=== PATIENT | female | born 1950 | race Caucasian/White ===

== ENCOUNTER 2018-01-06 17:00 | Inpatient (IN) | payer OTHER, BC ==
[~2018-01-06] VITALS: Ht 157.5 cm; Wt 54.0 kg
--- NOTE | ~2018-01-06 | H ---
[facility] [place] [address] HISTORY AND PHYSICAL Name: LOUIS MARS Room #: 404-P ADM IN M.R.#: [id number] Admission: 01/06/18 Attend Phys: Bhavana Pena MD Discharge: Date of : 50 Report #: [id number] THIS REPORT FOR: //name// CC: Bhavana SANCHEZ PCP DATE OF SERVICE: 01/06/2018 HISTORY OF PRESENT ILLNESS: The patient is a 67-year-old female who is known to have a history of Parkinson's disease, diabetes mellitus, in addition to right below-knee amputation. The patient presented to the clinic yesterday with being very weak, very stiff and according to the , she stopped taking her medications for the last week. The patient's p.o. intake has been very poor. The patient was found to be very sick, tachycardic and tachypneic. For this reason, she was sent to the hospital. PAST MEDICAL HISTORY: Significant for Parkinson's disease that was diagnosed in 2008, type 1 diabetes mellitus that was diagnosed at the age of about 15 years ago. The patient wears glasses. The patient has a history of depression, right below-knee amputation, appendectomy, hysterectomy, hyperlipidemia, microalbuminuric diabetic nephropathy. MEDICATIONS: Reviewed and reconciled. ALLERGIES: DARVON and CODEINE. SOCIAL HISTORY: The patient is a former smoker. She smoked about half a pack a day for 20 years, but quit at the age of 49. She denies any alcohol use. She denies any drug use. FAMILY HISTORY: The patient's father at the age of 84. Mother at the age of 84 because of breast cancer and father at the age of 78 because of diabetes. REVIEW OF SYSTEMS: The patient is alert. She is pleasant. She is not in any distress. The patient denies any chest pain, shortness of breath or palpitation. She denies any nausea, vomiting or changes in her bowels. She denies any pain in the arms or legs. The patient is complaining of pain on the right hip. PHYSICAL EXAMINATION: VITAL SIGNS: On arrival to the hospital, the patient's temperature was 38.8, pulse 102, respirations 26, blood pressure 120/75. HEAD AND NECK: Unremarkable. Neck was supple. LUNGS: Clear to auscultation. CARDIAC: S1, S2. [address] [address] HISTORY AND PHYSICAL Name: LOUIS MARS Room #: 404-P [facility] IN .R.#: [id number] Admission: 01/06/18 Attend Phys: Bhavana Pena MD Discharge: Date of : 50 Report #: [id number] ABDOMEN: Benign. Bowel sounds were positive. EXTREMITIES: Without any edema. The patient has tenderness on the left hip area. The patient's x-ray of the chest showed low lung volumes with intermediate nodular density on the lower right lung. LABORATORY DATA: The patient's CBC showed a white count of 12.1, hemoglobin 12.7, hematocrit 39.3, platelet count 195. The patient's alcohol level was less than 10. Basic metabolic panel showed a sodium of 121, potassium 4.3, chloride 91, bicarbonate 24, BUN 9, creatinine 0.8, glucose of 380. The patient's acetaminophen level is less than 2, salicylate less than 2.8. 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 Rapid drug screen was negative. Urinalysis showed yellow colored urine, +3 glucose, +1 ketones, leukocytes +1, white blood cells are more than 25, red blood cells are 0-2, bacteria more than 30. CT angiogram showed no evidence of pulmonary embolus or aortic dissection, right lower lobe airspace infiltrate, this could represent pneumonia, significantly distended gallbladder without any gallstones. Lactic acid was 2.1, then 2.2 and after that went to 1.4. ASSESSMENT AND PLAN: 1. Pneumonia. 2. Urinary tract infection. 3. Hyponatremia. 4. Severe depression. 5. Parkinson's disease. 6. Type 1 diabetes mellitus. 7. Right below-knee amputation. The patient was admitted to the hospital with the above-mentioned diagnoses. I will go ahead and continue with the antibiotics including Rocephin and azithromycin. I will continue with the normal saline IV hydration. I will check the patient's labs tomorrow morning. The patient to start physical therapy and occupational therapy. The patient to resume her home medications and I will resume the patient's Wellbutrin that was stopped a few months ago. We will continue to monitor the patient very closely. I will start the patient on Lovenox for DVT prophylaxis. <ELECTRONICALLY SIGNED> By: Bhavana Pena MD 01/08/18 0752 [id number] Bhavana Pena MD /nt
--- NOTE | ~2018-01-06 | EKG ---
[place] [address] [facility] [place] [address] ELECTROCARDIOGRAM REPORT Name: LOUIS MARS Room #: 404-P ADM IN M.R.#: [id number] Admission: 01/06/18 Attend Phys: Bhavana Pena MD Discharge: Date of : 50 Report #: [id number] THIS REPORT FOR: //name// [facility] ED Test Date: 2018-01-06 Test Time: 18:41:04 Pat Name: LOUIS MARS Department: Room: Gender: F Occupational Medicine Specialist: TASHI : 1950 Requested By: Alexia Ryan Order Number: [id number] MD: Axel Smith Measurements Intervals [place] Rate: 102 P: 32 [place]: 139 QRS: 7 QRSD: 112 T: 45 QT: 365 QTc: 476 Interpretive Statements Sinus tachycardia Nonspecific ST segment abnormality No previous ECG available for comparison Electronically Signed On 01-07-2018 8:55:55 CDT by Axel Smith [email or web address] <ELECTRONICALLY SIGNED> By: Axel Smith MD, [facility] 01/07/18 0855 [id number] [id number] Axel Smith MD, FACC /EPI
[~2018-01-06 17:00] MED LIST: ARIPIPRAZOLE5 MG PO; BISACODYL SUPP10 MG RECTAL; COLACE100 MG PO; CYMBALTA60 MG PO; DETROL LA4 MG PO; GLUCAGON EMERGEN1 MG IJ; GLUTOSE GEL 1515 G1 PO; LEVEMIR SUBQ; LIPITOR10 MG PO; MAALOX ADVANCE355 M1 PO; MILK OF MA2400 MG/10 PO; MIRALAX17 GM PO; NOVOLOG100 UNIT/1 SUBQ; RESTORIL15 MG PO; SENOKOT-S1 TA1 PO; SINEMET 25-2501 EAC1 PO; TYLENOL325 MG PO; UNICOMPLEX M TA1 TA1 PO; VITAMIN D 5050000 I1 PO; WELLBUTRIN 75 M75 M1 PO; XANAX 0.25 MG0.25 MG PO
[2018-01-06 17:20] VITALS: BP 120/75
[2018-01-06 18:02] LABS: HEMATOCRIT 39.3 % (37.0-47.0); HEMOGLOBIN 12.7 gm/dL (12.0-15.0); MCH 26.4 pg (26.0-34.0); MCHC 32.3 g/dL (28.0-37.0); MCV 81.8 fL (80.0-100.0); RBC 4.81 mil/uL (4.20-5.00); WBC 12.1 thou/uL (4.0-11.0)
[2018-01-06 18:09] LABS: ANION GAP 6 mmol/L (7-16); BUN 9 mg/dL (7-18); CALCIUM 8.6 mg/dL (8.5-10.1); CHLORIDE 91 mmol/L (98-107); CO2 24 mmol/L (21-32); CREATININE 0.8 mg/dL (0.6-1.0); GLUCOSE 380 mg/dL (74-106); POTASSIUM 4.3 mmol/L (3.5-5.1); SODIUM 121 mmol/L (136-145)
[2018-01-06 18:13] LABS: SALICYLATE < 2.8 mg/dL (2.8-20.0)
[2018-01-06 18:54] LABS: URINE BILIRUBIN NEGATIVE (Negative); URINE BLOOD TRACE (Negative); URINE CLARITY CLEAR; URINE COLOR YELLOW; URINE GLUCOSE-RANDOM* 3+ (Negative); URINE KETONES 1+ (Negative); URINE LEUKOCYTES 1+ (Negative); URINE NITRITE NEGATIVE (Negative); URINE PROTEIN (DIPSTICK) NEGATIVE (Negative); URINE SPECIFIC GRAVITY <= 1.005 (1.005-1.035)
[2018-01-06 19:02] LABS: AMP/METHAMP Negative (Negative); BARBITURATES Negative (Negative); BENZODIAZEPINES Negative (Negative); COCAINE Negative (Negative); METHADONE Negative (Negative); OPIATES Negative (Negative); PCP Negative (Negative)
[2018-01-06 19:04] LABS: BACTERIA >30 Many /HPF (None Seen); CASTS None Seen /LPF (None Seen); CRYSTALS None Seen /LPF (None Seen); SQUAMOUS 4-10 Moderate /LPF (0-3); URINE RBC 0-2 Rare /HPF (0-2); URINE WBC >25 Many /HPF (0-5)
[2018-01-06] MEDS ORDERED: SINEMET 25-1001 EAC1 PO (19:06)
[2018-01-06] MEDS ORDERED: METFORMIN HCL500 MG PO (19:06)
[2018-01-06 22:04] VITALS: BP 125/80
[2018-01-07 07:16] VITALS: BP 106/64
[2018-01-07 09:49] VITALS: BP 114/63
[2018-01-07 20:20] VITALS: BP 102/61; BP 1102/61
[2018-01-08] VITALS: BP 112/58
[2018-01-08 04:47] LABS: HEMATOCRIT 37.2 % (37.0-47.0); HEMOGLOBIN 12.1 gm/dL (12.0-15.0); MCH 26.6 pg (26.0-34.0); MCHC 32.5 g/dL (28.0-37.0); MCV 82.1 fL (80.0-100.0); RBC 4.53 mil/uL (4.20-5.00); RDW 14.1 % (10.5-14.5); WBC 6.8 thou/uL (4.0-11.0)
[2018-01-08 04:48] VITALS: BP 128/80
[2018-01-08 04:52] LABS: CALCIUM 7.9 mg/dL (8.5-10.1); CREATININE 0.3 mg/dL (0.6-1.0); POTASSIUM 4.2 mmol/L (3.5-5.1)
[2018-01-08 10:17] VITALS: BP 106/65
[2018-01-08 17:09] VITALS: BP 109/73
[2018-01-08 20:35] VITALS: BP 121/75
[2018-01-09 04:41] VITALS: BP 116/70
[2018-01-09 08:51] VITALS: BP 116/68
[2018-01-09 16:21] VITALS: BP 118/74
[2018-01-09 20:29] VITALS: BP 115/73
[2018-01-10 04:02] LABS: HEMATOCRIT 34.7 % (37.0-47.0); HEMOGLOBIN 11.4 gm/dL (12.0-15.0); MCH 26.8 pg (26.0-34.0); MCHC 32.8 g/dL (28.0-37.0); MCV 81.7 fL (80.0-100.0); RBC 4.25 mil/uL (4.20-5.00); WBC 4.5 thou/uL (4.0-11.0)
[2018-01-10 04:10] LABS: CALCIUM 8.4 mg/dL (8.5-10.1); CREATININE 0.5 mg/dL (0.6-1.0)
[2018-01-10 04:52] VITALS: BP 109/62
[2018-01-10 08:00] VITALS: BP 107/58
[2018-01-10] MEDS ORDERED: LEVAQUIN 500 M500 M2 PO ×2 (11:13→11:30)
[2018-01-10] MEDS ORDERED: WELLBUTRIN XL150 MG PO (11:13)
[2018-01-10] MEDS ORDERED: MIRALAX17 GM PO (11:13)
[2018-01-10] MEDS ORDERED: CYMBALTA60 MG PO (11:13)
== END 2018-01-10 13:55 | DRG 871 ==
LOC: ER 17:00 → 4N 20:22 → EROBS 20:22 → 4N 22:53
PROVIDERS: Internal Medicine; Nurse Practitioner Adult Health; Physician Assistant
DX: A41.9 Sepsis, unspecified organism (principal); J18.9 Pneumonia, unspecified organism; J96.00 Acute respiratory failure, unspecified whether with hypoxia or hypercapnia; E87.1 Hypo-osmolality and hyponatremia; N39.0 Urinary tract infection, site not specified; F32.9 Major depressive disorder, single episode, unspecified; G20 Parkinson's disease; E86.0 Dehydration; Z91.14 Patient's other noncompliance with medication regimen; E10.51 Type 1 diabetes mellitus with diabetic peripheral angiopathy without gangrene; E10.65 Type 1 diabetes mellitus with hyperglycemia; E10.21 Type 1 diabetes mellitus with diabetic nephropathy; E78.5 Hyperlipidemia, unspecified; Z89.611 Acquired absence of right leg above knee; Z79.899 Other long term (current) drug therapy; Z79.4 Long term (current) use of insulin; Z79.84 Long term (current) use of oral hypoglycemic drugs; Z88.8 Allergy status to other drugs, medicaments and biological substances; Z88.6 Allergy status to analgesic agent; Z90.49 Acquired absence of other specified parts of digestive tract; Z90.710 Acquired absence of both cervix and uterus; Z87.891 Personal history of nicotine dependence; Z80.3 Family history of malignant neoplasm of breast; Z83.3 Family history of diabetes mellitus; F02.80 Dementia in other diseases classified elsewhere, unspecified severity, without behavioral disturbance, psychotic disturbance, mood disturbance, and anxiety
CPT/HCPCS: 10790

== ENCOUNTER 2020-02-08 21:38 | Inpatient (IN) | payer OTHER, BC ==
[~2020-02-08] VITALS: Ht 157.5 cm; Wt 58.5 kg
--- NOTE | ~2020-02-08 | EMS ---
[facility] [address] [place] [address] EMS Patient Care Report Name: LOUSI MARS Room #: REG DREA Garcia#: [id number] Admission: 02/08/20 Attend Phys: Discharge: Date of : 50 Report #: [id number] THIS REPORT FOR: //name// Report Transmitted: 02/08/2020 22:22 EMS Care Summary [place], [place]/[facility] Incident [id number] @ 02/08/2020 20:54 Incident Location [address] [place] [address] Patient LOUIS MARS Female, 69 Years 1950 Patient Address [address] [place] [address] Patient History Dementia,Diabetes,Parkinson's Disease,Hyperlipidemia,Amputee,Depression, Patient Allergies Codeine,Other drug allergy, Patient Medications Other, Effexor, Atorvastatin, Insulin, Metformin, Claritin, Cymbalta, Ibuprofen, Disposition Transported No Lights/[place] Dispatch Reason Diabetic Problem Transported To [facility] Narrative THE PATIENT WAS FOUND IN BED AT HOME WITH A HOSPICE NURSE ON SCENE. THE NURSE STATES SHE FOUND THE PATIENT TO BE HYPOGLYCEMIC WITH A READING OF 21 AND HAS BEEN WORKING FOR AN HOUR OR SO TRYING TO RAISE HER GLUCOSE READING WITH HONEY AND SMALL SQUIRTS OF JUICE ORALLY. AT EMS ARRIVAL THE PATIENT IS STILL UNRESPONSIVE. IV ACCESS WAS ESTABLISHED AND D10 WAS ADMINISTERED. THE PATIENT'S GLUCOSE WAS 169 FOLLOWING ONE DOSE OF D10 BUT THE PATIENT REMAINED ALTERED FROM HER NORMAL MENTATION. NO OTHER ABNORMALITIES WERE NOTED. NO [facility] [address] [place] [address] EMS Patient Care Report Name: LOUIS MARS Room #: REG [facility].#: [id number] Admission: 02/08/20 Attend Phys: Discharge: Date of : 50 Report #: [id number] CHANGES IN THE PATIENT'S CONDITION DURING TRANSPORT. THE PATIENT WAS MOVED TO BED 8 AT THE [facility] ER AND LEFT WITH THE SIDE RAILS UP AND LOCKED. CARE WAS TRANSFERERED TO THE ER NURSING STAFF. Initial Vitals @PTAGlucose: 21, @21:04P: 85,R: 14,BP: 135/78,GCS: 3,CO: 4,SpO2: 95,Revised Trauma: 8, @21:21P: 92,R: 14,BP: 142/86,Pain: 0/10,GCS: 13,CO: 0,SpO2: 94,Revised Trauma: 12, @21:09P: 91,R: 14,BP: 135/78,GCS: 10,Glucose: 169,CO: 3,SpO2: 96,Revised Trauma: 11, Assessments @21:00MENTAL:Unresponsive,SKIN:No Abnormalities,HEENT:Head/Face: No Abnormalities,Eyes: No Abnormalities,Neck/Airway: No Abnormalities,LUNG SOUNDS:General: No Abnormalities,Left Upper: No Abnormalities,Right Upper: No Abnormalities,Left Lower: No Abnormalities,Right Lower: No Abnormalities,ABDOMEN:General: No Abnormalities,Left Upper: No Abnormalities,Right Upper: No Abnormalities,Left Lower: No Abnormalities,Right Lower: No Abnormalities,PELVIS//GI:No Abnormalities,EXTREMITIES:Right Leg: Other,Left Arm: No Abnormalities,Right Arm: No Abnormalities,Left Leg: No Abnormalities,PULSE:Radial: 2+ Normal,NEURO:@21:21MENTAL:Confused,Person Oriented,Place Oriented,SKIN:No Abnormalities,HEENT:Head/Face: No Abnormalities,Eyes: No Abnormalities,Neck/Airway: No Abnormalities,LUNG SOUNDS:General: No Abnormalities,Left Upper: No Abnormalities,Right Upper: No Abnormalities,Left Lower: No Abnormalities,Right Lower: No Abnormalities,ABDOMEN:General: No Abnormalities,Left Upper: No Abnormalities,Right Upper: No Abnormalities,Left Lower: No Abnormalities,Right Lower: No Abnormalities,PELVIS//GI:No Abnormalities,EXTREMITIES:Right Leg: Other,Left Arm: No Abnormalities,Right Arm: No Abnormalities,Left Leg: No Abnormalities,PULSE:Radial: 2+ Normal,NEURO:No Abnormalities, Impression Diabetic Hypoglycemia Procedures @21:00ALS AssessmentResponse: Unchanged@21:02Saline Lock 10cc (20 ga) Site: Forearm-LeftResponse: UnchangedSucceeded@21:03Dextrose 10% - 125 Milliliters (ml) - Intravenous (IV)Response: Improved 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,BP: / M,PULSE: ,RR: R,SPO2: Ox,ETCO2: ,B,PAIN: ,GCS: , 20:53,Call Received 20:53,Dispatch Notified 20:54,Dispatched 20:56,En Route [address] [address] EMS Patient Care Report Name: LOUIS MARS Room #: REG DREA Garcia#: [id number] Admission: 02/08/20 Attend Phys: Discharge: Date of : 50 Report #: [id number] 20:58,On Scene 21:00,At Patient 21:00,ALS Assessment,Response: Unchanged 21:02,Saline Lock 10cc 20 ga Site: Forearm-Left,Response: UnchangedSucceeded, 21:03,Dextrose 10% - 125 Milliliters (ml) - Intravenous (IV),Response: Improved 21:04,BP: 135/78 M,PULSE: 85,RR: 14 R,SPO2: 95 Ox,ETCO2: ,BG: ,PAIN: ,GCS: 3, 21:09,BP: 135/78 M,PULSE: 91,RR: 14 R,SPO2: 96 Ox,ETCO2: ,B,PAIN: ,GCS: 10, 21:21,BP: 142/86 M,PULSE: 92,RR: 14 R,SPO2: 94 Ox,ETCO2: ,BG: ,PAIN: 0,GCS: 13, 21:25,Depart Scene 21:32,At Destination 21:49,Call Closed Disclaimer v1.1 Copyright 2020 [employer] This EMS Care Summary contains data elements from the applicable legal record (which may be displayed differently). It is designed to provide pertinent information for the following purposes: continuity of care, clinical quality, and state data reporting. The complete legal record is available to ED staff and administrators of the receiving hospital in [employer] Patient Tracker. All data is provided "as is."
[~2020-02-08 21:38] MED LIST changes: +LEVAQUIN 500 M500 M2 PO; +METFORMIN HCL500 MG PO; +SINEMET 25-1001 EAC1 PO; +WELLBUTRIN XL150 MG PO
[2020-02-08 21:39] VITALS: BP 131/74
[2020-02-08] MEDS ORDERED: LISPRO SUBQ (22:03)
[2020-02-08] MEDS ORDERED: LEVEMIR100 UNIT/2 SUBQ (22:04)
[2020-02-08] MEDS ORDERED: LIPITOR10 MG PO (22:05)
[2020-02-08 22:06] LABS: ABSOLUTE NEUTROPHILS 7.3 thou/uL (1.4-8.2); BASOPHILS 0.5 % (0.0-2.0); EOSINOPHILS 0.5 % (0.0-3.0); HEMATOCRIT 39.9 % (37.0-47.0); HEMOGLOBIN 12.8 gm/dL (12.0-15.0); LYMPHOCYTES 9.1 % (24.0-44.0); MCV 81.3 fL (80.0-100.0); MONOCYTES 2.2 % (1.0-8.0); PLATELET COUNT 238 thou/uL (150-400); POLYS 87.7 % (36.0-66.0); RBC 4.91 mil/uL (4.20-5.00); RDW 15.5 % (10.5-14.5); WBC 8.3 thou/uL (4.0-11.0)
[2020-02-08] MEDS ORDERED: CHILDREN'S ZYRT10 M1 PO (22:06)
[2020-02-08] MEDS ORDERED: VENLAFAXIN37.5 MG/1 PO (22:07)
[2020-02-08 22:18] LABS: ANION GAP 5 mmol/L (7-16); BUN 14 mg/dL (7-18); CALCIUM 8.2 mg/dL (8.5-10.1); CHLORIDE 100 mmol/L (98-107); CO2 30 mmol/L (21-32); CREATININE 0.6 mg/dL (0.6-1.0); GLUCOSE 85 mg/dL (74-106); POTASSIUM 3.7 mmol/L (3.5-5.1); SODIUM 135 mmol/L (136-145); TROPONIN-I <0.06 ng/mL (<0.06)
[2020-02-09 10:56] VITALS: BP 109/62
[2020-02-09 11:08] VITALS: BP 115/66
[2020-02-09 11:30] VITALS: BP 117/72
--- NOTE | 2020-02-09 14:34 | NUR ---
Nutrition: Admit with hypoglycemia (BG 34)-seen due to high risk screen for poor intake, weight loss. Pt with hx end stage Parkinsons, DM, dementia. Is currently on hospice at home. Risk indicated for poor intake and weight loss. Unable to quantify weight loss as pt states UBW is 129#, as is current. Appetite reportedly varies at home. Does need some assistance with intake/utensils depending on what is served. pt does not use supplements at home but is agreeable to glucerna BID as current intake reported as < 50% of meals. Due to hospice status and intervention added, place as low risk.
[2020-02-09 15:24] VITALS: BP 120/74
--- NOTE | 2020-02-09 18:45 | NUR ---
PT ARRIVED TO UNIT FROM ER. PT ALERT AND ORIENTED. VSS. DENIES PAIN. PT ON HOSPICE AT HOME. PT HAS RIGHT AKA. SCARS FROM WOUNDS ON BOTTOM NOTED. HOSPITALIST NOTIFIED NEEDING ORDERS. WAS TOLD BY PHYSICIAN WILL SEE PT TODAY, DR TORRES WILL SEE PT TOMORROW. PT SEEN BY NUTRITION--REFER TO ORDERS. BLOOD SUGARS STABLE. PT EATING WELL. DENYING OF NEEDS AT THIS TIME. PERSONAL ITEMS AND PROSTHETIC BROUGHT BY . WILL CONT TO MONITOR AND FOLLOW POC. WILL PASS ON REPORT TO LIN RN.
[2020-02-09 20:00] VITALS: BP 117/73
[2020-02-10 00:24] VITALS: BP 118/75
[2020-02-10 03:15] VITALS: BP 118/70
--- NOTE | 2020-02-10 05:08 | NUR ---
PT WAS TRANSFERRED TO THE UNIT FROM CCU AT APPROX 0310.PT WAS ALERT AND AWAKE PT DENIED PAIN SO FAR.PT HAS A RBKA. OLD SCAR NOTED AROUND HER INNER THIGH.BG MONITORED Q4 WAS 152 AT 0430.PT INCONT,LUIS M CARE WITH EACH INCONTINENCE. FALL PRECAUTIONS IN PLACE,CALL LIGHT WITHIN REACH.
[2020-02-10 05:34] LABS: HEMATOCRIT 37.9 % (37.0-47.0); HEMOGLOBIN 12.1 gm/dL (12.0-15.0); MCH 26.1 pg (26.0-34.0); MCV 81.7 fL (80.0-100.0); RBC 4.64 mil/uL (4.20-5.00); RDW 15.8 % (10.5-14.5); WBC 6.8 thou/uL (4.0-11.0)
[2020-02-10 05:50] LABS: CALCIUM 8.2 mg/dL (8.5-10.1); CREATININE 0.6 mg/dL (0.6-1.0); POTASSIUM 3.9 mmol/L (3.5-5.1)
[2020-02-10 08:00] VITALS: BP 120/80
--- NOTE | 2020-02-10 14:08 | NUR ---
ASSUMED CARE OF THE PT AT 0700. PT IS UP WITH ASSIST AND DOES NOT USE HER PROSTHESIS FOR AMBULATION. BS CONTROLLED BY INSULIN, SEE EMAR. REDNESS ON BOTTOM, NO OPEN WOUNDS NOTICED. SPOKE WITH PTS AND SISTER IN LAW REGARDING PTS CARE. PT IS INCONTINENT. L FOREARM DRY AND INTACT. FALL PRECAUTIONS IN PLACE, FALL CALL LIGHT IS WITHIN REACH AND BED IN LOWEST POSITION/ BED/ CHAIR ALARM ON. WILL CONTINUE TO MONITOR THE PT.
[2020-02-10 15:25] VITALS: BP 98/66
--- NOTE | 2020-02-10 16:11 | NUR ---
ASSESSMENT: CM REVIEWED CHART AND SPOKE WITH PATIENT. PT IS FROM HOME WHERE SHE IS IN SERVICES WITH [facility]. PT WAS FOUND UNRESPONSIVE BY HER CIRCUIT RECORDER AND BS WAS 20. PT LIVES AT HOME WITH HER . PT REPORTS NOT HAVING ANY STEPS TO ENTER THE HOME AND REPORTS NO STEPS ONCE INSIDE. PT REPORTS HAVING A RAMP TO ENTER THE HOME. PT REPORTS THAT SHE PLANS TO RETURN HOME WITH HOSPICE. CM SPOKE WITH [facility] WHO REPORTS THEY HAVE NOT DISCHARGED PATIENT AND THEY WILL JUST NEED UPDATED ORDERS FAXED TO THEM AT DISCHARGE TO [phone] TO SEE IF ANYTHING HAS CHANGED. CM WILL CONTINUE TO FOLLOW TO ASSIST NEEDED.
[2020-02-10 19:20] VITALS: BP 122/80
[2020-02-11 04:35] VITALS: BP 150/76
[2020-02-11 05:57] LABS: ABSOLUTE NEUTROPHILS 4.4 thou/uL (1.4-8.2); BASOPHILS 0.5 % (0.0-2.0); HEMATOCRIT 38.7 % (37.0-47.0); HEMOGLOBIN 12.5 gm/dL (12.0-15.0); LYMPHOCYTES 35.3 % (24.0-44.0); MCH 26.2 pg (26.0-34.0); MCHC 32.2 g/dL (28.0-37.0); MCV 81.2 fL (80.0-100.0); MONOCYTES 6.4 % (1.0-8.0); PLATELET COUNT 241 thou/uL (150-400); POLYS 55.8 % (36.0-66.0); RBC 4.76 mil/uL (4.20-5.00); RDW 15.9 % (10.5-14.5); WBC 7.9 thou/uL (4.0-11.0)
[2020-02-11 06:15] LABS: ALBUMIN 3.1 g/dL (3.4-5.0); CALCIUM 8.4 mg/dL (8.5-10.1); CREATININE 0.6 mg/dL (0.6-1.0); TOTAL BILIRUBIN 0.4 mg/dL (0.2-1.0); TOTAL PROTEIN 7.8 g/dL (6.4-8.2)
--- NOTE | 2020-02-11 07:11 | NUR ---
PROGRESS PT TRANSFERRED FROM 2 N VIA BED, VSS, ORIENTED TO ROOM CALL LIGHT AND POC. LONG ACTING LANTUS HELD AFTER INFORMING THAT SHE HAD 30 UNITS AT 1800. PT DENIED PAIN SLEPT THROUGHOUT NIGHT USING CALL LIGHT APPROPRIATELY.
[2020-02-11] MEDS ORDERED: LANTUS SUBQ (07:21)
[2020-02-11 07:46] VITALS: BP 126/73
[2020-02-11 11:18] VITALS: BP 126/73
[2020-02-11 12:09] VITALS: BP 126/73
--- NOTE | 2020-02-11 12:12 | NUR ---
PHYSICIAN INDICATED PT IS MEDICALLY STABLE TO DC HOME THIS DAY AND RESUME HOSPICE SERVICES WITH [facility] . CM CALLED AND SPOKE WITH PT THIS AM. SHE IS AWARE AND AGREEABLE. SHE INDICATED HE WOULD BE ABLE TO PICK HER UP THIS DAY. ORDERS SENT TO [facility]. PT HAS ALL NEEDED DME. NO OTHER CM INTERVENTION INDICATED. CASE CLOSED.
--- NOTE | 2020-02-11 13:17 | NUR ---
PT IS AOX3, VSS, NO C/O PAIN. PT REPORTS SHE IS READY TO GO HOME. PT TOLERATING DIET WELL. UP WITH ASSIST X1, VOIDS PER EXTERNAL CATH. IV REMOVED FROM RIGHT FOREARM. NURSE EDUCATED ON DC INSTRUCTIONS AND PT AGREED. FAMILY TOOK PATIENT HOME.
[2020-02-11 13:35] VITALS: BP 126/73
== END 2020-02-11 13:17 | disposition hospice, home (50) | DRG 637 ==
LOC: ER 21:38 → 4S 23:41 → EROBS 23:41 → 2N 02-09 11:35 → 4S 02-10 03:15 → 4W 02-10 19:21
PROVIDERS: Hospitalist; Student in an Organized Health Care Education/Training Program; ADMIT Internal Medicine; ATTEND Internal Medicine
DX: E11.649 Type 2 diabetes mellitus with hypoglycemia without coma (principal); G93.41 Metabolic encephalopathy; T38.3X5A Adverse effect of insulin and oral hypoglycemic [antidiabetic] drugs, initial encounter; G20 Parkinson's disease; E11.51 Type 2 diabetes mellitus with diabetic peripheral angiopathy without gangrene; Z66 Do not resuscitate; F41.9 Anxiety disorder, unspecified; F03.90 Unspecified dementia, unspecified severity, without behavioral disturbance, psychotic disturbance, mood disturbance, and anxiety; F32.9 Major depressive disorder, single episode, unspecified; E11.40 Type 2 diabetes mellitus with diabetic neuropathy, unspecified; E78.5 Hyperlipidemia, unspecified; Z88.6 Allergy status to analgesic agent; Z79.4 Long term (current) use of insulin; Z88.8 Allergy status to other drugs, medicaments and biological substances; Z89.511 Acquired absence of right leg below knee; Z90.49 Acquired absence of other specified parts of digestive tract; Z90.710 Acquired absence of both cervix and uterus; Z79.899 Other long term (current) drug therapy
CPT/HCPCS: 10040; 10045; 10081

== ENCOUNTER 2020-03-04 15:59 | Inpatient (IN) | payer OTHER, BC ==
[~2020-03-04] VITALS: Ht 157.5 cm; Wt 51.9 kg
--- NOTE | ~2020-03-04 | EMS ---
[place] [address] EMS Patient Care Report Name: LOUIS MARS Room #: PRE M.R.#: [id number] Admission: Attend Phys: Discharge: Date of : 50 Report #: [id number] THIS REPORT FOR: //name// Report Transmitted: 03/04/2020 16:01 EMS Care Summary [place], [place]/[facility] Incident [id number] @ 03/04/2020 15:23 Incident [address] [place] [address] Patient LOUIS MARS Female, 69 Years 1950 Patient Address [address] [place] [address] Patient History Dementia,Diabetes,Parkinson's Disease,Hyperlipidemia,Amputee,Depression, Patient Allergies Codeine,Other drug allergy, Patient Medications Metformin, Other, Effexor, Atorvastatin, Insulin, Claritin, Cymbalta, Ibuprofen, Chief Complaint evaluation for placement in rehab center Disposition Transported No Lights/[place] Dispatch Reason Diabetic Problem Transported To [facility] Narrative Initially dispatched for a diabetic problem. Upon EMS arrival patient was found sitting in a chair in her bedroom, showing no obvious signs of distress, conscious, alert, acting normal for self. reports that the patient has dementia and diabetes. He stated that she [place] [address] EMS Patient Care Report Name: LOUIS MARS Room #: PRE Jose#: [id number] Admission: Attend Phys: Discharge: Date of : 50 Report #: [id number] past couple of months and her primary care physician wants her evaluated for placement at a rehab center. Patient was carried to the stretcher, secured, and loaded into the ambulance. She was transported to [facility] without incident. Full report was given to RN prior to signing this document. Initial Vitals @15:45P: 70,R: 16,BP: 112/70,Pain: 0/10,GCS: 14,Glucose: 154,SpO2: 95,Revised Trauma: 12, @15:54P: 66,R: 16,BP: 94/60,GCS: 14,SpO2: 95,Revised Trauma: 12, Assessments @15:36MENTAL:Confused,SKIN:No Abnormalities,HEENT:Head/Face: No Abnormalities,Eyes: No Abnormalities,Neck/Airway: No Abnormalities,LUNG SOUNDS:ABDOMEN:PELVIS//GI:EXTREMITIES:Left Arm: No Abnormalities,Right Arm: No Abnormalities,Left Leg: No Abnormalities,Right Leg: No Abnormalities,PULSE:NEURO:Weakness Left-Sided,Weakness Right-Sided, Impression Generalized Weakness Procedures @15:36ALS AssessmentResponse: UnchangedSucceeded Timeline 15:20,Call Received 15:20,Dispatch Notified 15:23,Dispatched 15:25,En Route 15:33,On Scene 15:36,At Patient 15:36,ALS Assessment,Response: UnchangedSucceeded, 15:45,BP: 112/70 M,PULSE: 70,RR: 16 R,SPO2: 95 Ox,ETCO2: ,B,PAIN: 0,GCS: 14, 15:46,Depart Scene 15:54,BP: 94/60 M,PULSE: 66,RR: 16 R,SPO2: 95 Ox,ETCO2: ,BG: ,PAIN: ,GCS: 14, 15:54,At Destination 16:18,Call Closed Disclaimer v1.1 Copyright 2020 [employer] This EMS Care Summary contains data elements from the applicable legal record (which may be displayed differently). It is designed to provide pertinent information for the following purposes: continuity of care, clinical quality, and state data reporting. The complete legal record is available to ED staff and administrators of the receiving hospital in [employer] Patient Tracker. All data is provided "as is."
[2020-03-04 15:59] VITALS: BP 114/66
[~2020-03-04 15:59] MED LIST changes: +CHILDREN'S ZYRT10 M1 PO; +LANTUS SUBQ; +LEVEMIR100 UNIT/2 SUBQ; +LISPRO SUBQ; +VENLAFAXIN37.5 MG/1 PO
[2020-03-04 16:40] LABS: ABSOLUTE NEUTROPHILS 7.1 thou/uL (1.4-8.2); BASOPHILS 0.5 % (0.0-2.0); EOSINOPHILS 0.5 % (0.0-3.0); HEMATOCRIT 32.4 % (37.0-47.0); HEMOGLOBIN 10.6 gm/dL (12.0-15.0); LYMPHOCYTES 13.6 % (24.0-44.0); MCHC 32.6 g/dL (28.0-37.0); MCV 79.8 fL (80.0-100.0); MONOCYTES 7.3 % (1.0-8.0); PLATELET COUNT 399 thou/uL (150-400); POLYS 78.1 % (36.0-66.0); RBC 4.06 mil/uL (4.20-5.00)
[2020-03-04 17:03] LABS: CALCIUM 8.2 mg/dL (8.5-10.1); POTASSIUM 4.7 mmol/L (3.5-5.1)
[2020-03-04 17:07] LABS: URINE BILIRUBIN NEGATIVE (Negative); URINE BLOOD 2+ (Negative); URINE CLARITY CLOUDY; URINE COLOR YELLOW; URINE GLUCOSE-RANDOM* NEGATIVE (Negative); URINE KETONES NEGATIVE (Negative); URINE PROTEIN (DIPSTICK) TRACE (Negative)
[2020-03-04 17:08] LABS: URINE LEUKOCYTES-REFLEX 3+ (Negative); URINE NITRITE-REFLEX POSITIVE (Negative)
[2020-03-04 17:10] LABS: ALBUMIN 1.9 g/dL (3.4-5.0); TOTAL BILIRUBIN 0.8 mg/dL (0.2-1.0); TOTAL PROTEIN 7.9 g/dL (6.4-8.2)
[2020-03-04 17:15] LABS: BACTERIA-REFLEX >30 Many /HPF (None Seen); CASTS None Seen /LPF (None Seen); CRYSTALS None Seen /LPF (None Seen); SQUAMOUS >10 Many /LPF (0-3); URINE WBC-REFLEX >25 Many /HPF (0-5)
[2020-03-04 17:16] LABS: URINE RBC 3-10 Few /HPF (0-2)
[2020-03-04 18:26] VITALS: BP 105/51
[2020-03-04] MEDS ORDERED: LEVEMIR100 UNIT/1 SUBQ (19:06)
[2020-03-04] MEDS ORDERED: HUMALOG100 UNIT/1 SUBQ (19:09)
[2020-03-04 19:18] VITALS: BP 97/55
[2020-03-04 19:25] VITALS: BP 117/70
[2020-03-05 00:25] VITALS: BP 101/60
[2020-03-05 03:20] VITALS: BP 115/70
[2020-03-05 05:44] LABS: ABSOLUTE NEUTROPHILS 5.9 thou/uL (1.4-8.2); BASOPHILS 0.4 % (0.0-2.0); EOSINOPHILS 0.6 % (0.0-3.0); HEMATOCRIT 29.2 % (37.0-47.0); HEMOGLOBIN 9.5 gm/dL (12.0-15.0); LYMPHOCYTES 15.4 % (24.0-44.0); MCHC 32.5 g/dL (28.0-37.0); MONOCYTES 8.2 % (1.0-8.0); PLATELET COUNT 373 thou/uL (150-400); POLYS 75.4 % (36.0-66.0); RBC 3.65 mil/uL (4.20-5.00); RDW 16.5 % (10.5-14.5); WBC 7.9 thou/uL (4.0-11.0)
[2020-03-05 05:59] LABS: CALCIUM 7.8 mg/dL (8.5-10.1); CREATININE 0.8 mg/dL (0.6-1.0); POTASSIUM 4.1 mmol/L (3.5-5.1)
--- NOTE | 2020-03-05 06:37 | NUR ---
VSS-AFEBRILE. ALERT AND ORIENTED X 2-3, LETHARGIC. LUNGS DIMINISHED IN ALL KAMARA BILATERALLY-ROOM AIR. INCONTINENT OF BLADDER, NO BM THIS SHIFT. TURNED AND OFFERED ORAL HYDRATION EVERY TWO HOURS FOR COMFORT. BROWN, HEALED AREAS ON SACRUM, NO OBSERVED DISCHARGE. FALL PRECAUTIONS IN PLACE.
[2020-03-05 07:23] VITALS: BP 112/55
[2020-03-05 15:16] VITALS: BP 113/60
--- NOTE | 2020-03-05 20:14 | NUR ---
Assumed pt care this am, VS stable, fluid intake and frequent feeding done thorugh out the shift. at the beside this pm. Lethargic for most ofthe day, would speak but in a very soft tone. POC followed with no signs or verbalization of distress noted. [id number] to the night nurse.
[2020-03-05 20:18] VITALS: BP 121/68
[2020-03-06 05:49] LABS: ABSOLUTE NEUTROPHILS 5.1 thou/uL (1.4-8.2); BASOPHILS 0.6 % (0.0-2.0); EOSINOPHILS 0.7 % (0.0-3.0); HEMATOCRIT 29.8 % (37.0-47.0); HEMOGLOBIN 9.7 gm/dL (12.0-15.0); LYMPHOCYTES 18.9 % (24.0-44.0); MCHC 32.5 g/dL (28.0-37.0); MONOCYTES 6.6 % (1.0-8.0); PLATELET COUNT 337 thou/uL (150-400); POLYS 73.2 % (36.0-66.0); RBC 3.73 mil/uL (4.20-5.00); RDW 16.1 % (10.5-14.5); WBC 6.9 thou/uL (4.0-11.0)
[2020-03-06 05:58] LABS: CALCIUM 7.7 mg/dL (8.5-10.1); CREATININE 0.7 mg/dL (0.6-1.0); POTASSIUM 4.1 mmol/L (3.5-5.1)
--- NOTE | 2020-03-06 07:09 | H ---
[facility] [place] [address] HISTORY AND PHYSICAL Name: LOUIS MARS Room #: 451-P ADM IN M.R.#: [id number] Admission: 03/04/20 Attend Phys: Bhavana Pena MD Discharge: Date of : 50 Report #: [id number] THIS REPORT FOR: cc: Bhavana Pean MD,Bhavana Pena,Bhavana RODRIGUEZ ~ CC: Bhavana Pena HISTORY OF PRESENT ILLNESS: The patient is a 69-year-old female who is known to have a history of end-stage Parkinson's disease and type 1 diabetes mellitus. The patient was seen in my office the day before yesterday and she was very lethargic and I was hoping for the patient to be admitted to a retirement facility for rehabilitation because she was just discharged from the hospital with hypoglycemia, but unfortunately the patient was not a candidate for the rehab. For this reason, we asked the patient's to bring her to the Emergency Room to be evaluated and have better investigation about the cause of her weakness. The patient was found to have urinary tract infection. The patient has not been having any nausea or vomiting or any abdominal pain, but she has been very lethargic. The patient denies any shortness of breath or chest pain. She denies any pain in the arms or legs. The patient's was telling me that she was having elevated blood sugar and he was afraid to give her any diabetic medications because he was afraid she easily become hypoglycemic. PAST MEDICAL HISTORY: Significant for Parkinson's disease, type 1 diabetes mellitus, depression, vitamin D deficiency, hyperlipidemia, diabetic neuropathy, peripheral arterial disease with right below-knee amputation, appendectomy, hysterectomy and the patient has a history of glaucoma. The patient had previous history of fractured wrist. MEDICATIONS: The patient's medications were reviewed and reconciled. ALLERGIES: CODEINE AND DARVON. SOCIAL HISTORY: The patient denies any history of smoking, alcohol use or drug use. The patient is living with her , who is providing total care to the patient. FAMILY HISTORY: Noncontributory. REVIEW OF SYSTEMS: Negative besides what was mentioned above. PHYSICAL EXAMINATION: VITAL SIGNS: Shows temperature of 97.6, pulse 71, respirations 18, blood pressure 114/66. HEAD AND NECK: Unremarkable. NECK: Supple. [address] [address] HISTORY AND PHYSICAL Name: LOUIS MARS Room #: 451-P [facility] IN M.R.#: [id number] Admission: 03/04/20 Attend Phys: Bhavana Pena MD Discharge: Date of : 50 Report #: [id number] LUNGS: Clear to auscultation. CARDIAC: S1, S2. ABDOMEN: Benign. Bowel sounds were positive. EXTREMITIES: Without any edema. The patient has the right below-knee amputation. The patient has resting tremor. The patient has normal movement of the arms or legs. LABORATORY DATA: Labs showed white count of 9.0, hemoglobin 10.6, hematocrit 32.4, platelet count 399, neutrophils are 78%. The patient's sodium is 130, potassium 4.7, chloride 98, bicarbonate 28, BUN 13, creatinine 1, glucose 118, calcium 8.2, ALT 14, albumin 1.9. Urinalysis showed cloudy urine, trace of protein. Blood +2, nitrite positive, urobilinogen +2, leukocytes 3, white blood cells more than 25, red blood cells 3-10, bacteria more than 30. Lactic acid 1. Repeated CBC today showed white count of 7.9, hemoglobin 9.5, hematocrit 29.2, platelet count of 373, neutrophils are 75%. Basic metabolic panel showed a sodium of 134, potassium 4.1, chloride 102, bicarbonate 28, BUN 13, creatinine 0.8, glucose 113, calcium 7.8. Blood culture is showing gram-negative rods in both cultures. ASSESSMENT: 1. Urinary tract infection. 2. Parkinson's disease. 3. Dehydration. 4. Generalized debility. PLAN: The patient was admitted to the hospital with the above-mentioned diagnoses. The patient is to continue the IV hydration. The patient to continue IV antibiotics. She was started on Rocephin. The patient to be on sliding scale coverage for her diabetes because the patient is not eating very well. We will encourage the patient to start eating. I will continue with the pain management for now. I will repeat the patient's labs again tomorrow morning. We will have physical therapy, occupational therapy and speech therapy to work with the patient. I will start the patient on Lovenox for DVT prophylaxis. <ELECTRONICALLY SIGNED> By: Bhavana Pena MD 03/06/20 0709 8 Bhavana Pena MD /nt
[2020-03-06 07:16] VITALS: BP 121/68
--- NOTE | 2020-03-06 07:25 | NUR ---
ASSUMED PT CARE AROUND 1930. AXOX2. VSS. NO S/S ACUTE DISTRESS NOTED OR REPORTED AT THIS TIME. CARE TRANSFERRED TO INCOMING RN AT THIS TIME.
[2020-03-06 15:10] VITALS: BP 112/60
--- NOTE | 2020-03-06 15:59 | NUR ---
PT IS AOX2, VSS, SPECKS SLOWLY. PT DOES NOT USE CALL LIGHT. TURNED Q 2HRS, TOLERATES DIET WELL. TAKES PO MEDICATION WITH APPLESAUCE. PT IS INCONTINENT OF B & B. NO DISTRESS NOTED. WILL CONTINUE TO MONITOR.
[2020-03-06 20:12] VITALS: BP 125/66
--- NOTE | 2020-03-07 01:06 | NUR ---
ASSUMED PT CARE AROUND 1930. AXOX4. VSS. NO S/S ACUTE DISTRESS NOTED OR REPORTED AT THIS TIME. WILL CONT TO MONITOR FOR ANY CHANGES IN CONDITION.
[2020-03-07 06:17] LABS: ABSOLUTE NEUTROPHILS 4.4 thou/uL (1.4-8.2); BASOPHILS 0.5 % (0.0-2.0); EOSINOPHILS 1.1 % (0.0-3.0); HEMATOCRIT 29.4 % (37.0-47.0); HEMOGLOBIN 9.5 gm/dL (12.0-15.0); LYMPHOCYTES 19.4 % (24.0-44.0); MCHC 32.3 g/dL (28.0-37.0); MCV 80.4 fL (80.0-100.0); MONOCYTES 6.9 % (1.0-8.0); PLATELET COUNT 288 thou/uL (150-400); POLYS 72.1 % (36.0-66.0); RBC 3.66 mil/uL (4.20-5.00); RDW 16.3 % (10.5-14.5); WBC 6.1 thou/uL (4.0-11.0)
[2020-03-07 06:25] LABS: CALCIUM 7.5 mg/dL (8.5-10.1); CREATININE 0.7 mg/dL (0.6-1.0); POTASSIUM 3.8 mmol/L (3.5-5.1)
[2020-03-07 07:01] VITALS: BP 125/69
--- NOTE | 2020-03-07 12:31 | NUR ---
ASSUMED PT CARE AT 0700.PT ALERT X ORIENTED X2. ACHS. CARB CONTOL DIABETIC DIET. INCONTINENT OF BB, IV LEFT AC WITH NS RUNNING AT 75 ML/HR.ON ROOM AIR. CAME TO VISIT HER. FALL PRECAUTION IN PLACE. PT WILL LET US KNOW IF SHE NEEDS TO USE BEDPAN. NOW SITTING IN CHAIR. WILL CONT TO MONITOR. LBM 03/07/20
--- NOTE | 2020-03-07 14:08 | NUR ---
PT ADMITTED RELATED TO AMS, UTI. CM REVIEWED CHART AND SPOKE WITH CARE TEAM. CM MET WITH PT AND SPOUSE/DPOA AT BEDSIDE THIS DAY. CM ROLE INTRODUCED. THEY INDICATED THEY RESIDE IN A HOUSE WITH A RAMP TO ENTER. THEY INDICATED THAT PT HAS A HOSPITAL BED, HOME O2, WHEELCHAIR, COMMODE, AND SHOWER CHAIR FOR HOME USE. PT HAD BEEN ON SERVICE WITH [facility]. SPOUSE INDICATED THAT PT HAD BEEN ON HOSPICE FOR A LITTLE OVER A YEAR. CM SPOKE WITH VIOLET AT [facility] THIS AM. CM PROVIDED ADMITTIND DX AND DATE. SHE INDICATED THAT THEY WILL COMPLETE REVOCATION PAPERWORK WITH PT AND SPOUSE OF SATURDAY DATE OF ADMIT AND PROVIDE CM A COPY. AL'S PCP IS DR. TORRES. PT, SPOUSE, DOLORES VICTOR ARE INTERESTED IN PT GOING TO SHORT TERM POST ACUTE CARE STAY FOR SOME STRENGTHENING TO REDUCE CAREGIVER BURDEN. REFERRAL SENT TO [facility]. CM TO FOLLOW INDICATED WITH DC PLANNING.
--- NOTE | 2020-03-07 15:52 | NUR ---
FAXED REFERRAL TO [facility] RECEIVED CONFIRMATION AMD LEFT MSG WITH ROSAURA IN ADM. DP TO FOLLOW.
[2020-03-07 19:38] VITALS: BP 127/82
[2020-03-08 05:16] LABS: ABSOLUTE NEUTROPHILS 3.9 thou/uL (1.4-8.2); BASOPHILS 0.5 % (0.0-2.0); EOSINOPHILS 1.2 % (0.0-3.0); HEMATOCRIT 27.8 % (37.0-47.0); LYMPHOCYTES 20.2 % (24.0-44.0); MCH 25.9 pg (26.0-34.0); MCHC 32.2 g/dL (28.0-37.0); MCV 80.3 fL (80.0-100.0); MONOCYTES 7.5 % (1.0-8.0); PLATELET COUNT 273 thou/uL (150-400); POLYS 70.6 % (36.0-66.0); RBC 3.47 mil/uL (4.20-5.00); RDW 15.7 % (10.5-14.5); WBC 5.5 thou/uL (4.0-11.0)
[2020-03-08 05:37] LABS: CALCIUM 7.4 mg/dL (8.5-10.1); CREATININE 0.6 mg/dL (0.6-1.0); POTASSIUM 3.6 mmol/L (3.5-5.1)
--- NOTE | 2020-03-08 07:00 | NUR ---
Pt. rested quietly during the night when checked on during frequent rounds. She offers no complaints. Incontinent of urine and tahir care given. Bed alarm is on.
[2020-03-08] MEDS ORDERED: REMERON 30 MG T30 M1 PO (07:09)
[2020-03-08] MEDS ORDERED: ACETAMINOPHEN325 M1 PO (07:09)
[2020-03-08] MEDS ORDERED: HUMALOG100 UNIT/1 SUBQ (07:10)
[2020-03-08 07:14] VITALS: BP 123/72
[2020-03-08] MEDS ORDERED: CEFUROXIME500 MG PO (07:15)
[2020-03-08 15:45] VITALS: BP 135/88
--- NOTE | 2020-03-08 18:21 | NUR ---
Assumed pt care this am, VS stable. Food intake is poof, pt is a feeder and would take fluids when encourafged, small frequent feedings and hydration done through out the day. Marta care given several times since pt is incontinent of both bowel and bladder. Pt was able to work with PT and OT and was able to use to beside commode. POC followed with no sings or verbalizations of distress noted. 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 IV removed, pt is now dc.
== END 2020-03-08 18:02 | DRG 689 ==
LOC: ER 15:59 → 4W 18:13 → EROBS 18:13 → 4W 18:20
PROVIDERS: Emergency Medicine; ADMIT Internal Medicine; ATTEND Internal Medicine
DX: N39.0 Urinary tract infection, site not specified (principal); G92 Toxic encephalopathy; E43 Unspecified severe protein-calorie malnutrition; R78.81 Bacteremia; E86.0 Dehydration; G20 Parkinson's disease; F02.80 Dementia in other diseases classified elsewhere, unspecified severity, without behavioral disturbance, psychotic disturbance, mood disturbance, and anxiety; E11.51 Type 2 diabetes mellitus with diabetic peripheral angiopathy without gangrene; F32.9 Major depressive disorder, single episode, unspecified; E78.5 Hyperlipidemia, unspecified; Z79.84 Long term (current) use of oral hypoglycemic drugs; Z68.20 Body mass index [BMI] 20.0-20.9, adult; Z79.4 Long term (current) use of insulin; Z89.511 Acquired absence of right leg below knee; Z79.899 Other long term (current) drug therapy; Z88.5 Allergy status to narcotic agent; Z88.8 Allergy status to other drugs, medicaments and biological substances; Z03.818 Encounter for observation for suspected exposure to other biological agents ruled out
CPT/HCPCS: 10047